=== PATIENT | female | born 1945 | race Caucasian/White ===

== ENCOUNTER 2019-04-19 11:51 | Outpatient (CLI) | payer MEDICARE, BC, SELFPAY ==
--- NOTE | ~2019-04-19 | XR_ITS ---
XR ribs LT 2V w CXR 2V DATE: 04/19/2019 12:30 INDICATION: Injury 2 days ago. Left posterior lower rib pain. TECHNIQUE: PA and lateral chest. 3 views of the left ribs. COMPARISON: 08/18/2018 AP chest FINDINGS: Normal heart size. No hilar or mediastinal enlargement. No pulmonary infiltrate or consolidation, pleural effusion or pulmonary vascular congestion or pneumo thorax. No left rib fracture is evident. IMPRESSION: Negative Reviewed, dictated and finalized at location B. IMPRESSION: Negative
== END 2019-04-19 11:52 | disposition home or self-care (01) ==
PROVIDERS: PCP Family Medicine; Visit Provider Family Medicine
DX: R07.81 Pleurodynia (principal)
CPT/HCPCS: 71045; 71101

== ENCOUNTER → 2021-10-08 07:18 | Outpatient (CLI) | payer MEDICARE, BC, SELFPAY ==
--- NOTE | ~2021-10-08 | MM_ITS ---
EXAMINATION: MM screening [facility] BI w bernardino HISTORY: Screening mammogram TECHNIQUE: Craniocaudal and mediolateral oblique 3-D tomosynthesis images were obtained and synthetic 2-D images were generated. CAD analysis was submitted and interpreted. COMPARISON: 04/15/2018, 09/12/2011 BREAST PARENCHYMAL COMPOSITION: There are scattered areas of fibroglandular density. FINDINGS: There is no suspicious mass, calcification, or architectural distortion to suggest malignan cy in either breast. There has been no suspicious interval change. IMPRESSION: 1. No mammographic evidence of malignancy. 2. Recommend routine screening mammography in one year. BI-RADS Category 1: Negative Reviewed, dictated and finalized at location A.
--- NOTE | ~2021-10-08 | DEXA_ITS ---
Bone Density Report Name: KIRK BRINK Age: 76 Sex: Female Ethnicity: White Date of : 1945 Indication: postmenopausal; screening for osteoporosis; height loss; Referring Provider: Rafael Schumacher Study: Bone densitometry was performed. Exam Date: October 08, 2021 Accession number: [id number] Bone Density: Region BMD T-score Z-score Classification AP Spine (L1-L4) 0.893 -1.4 1.2 Osteopenia Femoral Neck (Left) 0.690 -1.4 0.8 Osteopenia Total Hip (Left) 0.742 -1.6 0.3 Osteopenia Femoral Neck (Right) 0.703 -1.3 0.9 Osteopenia Total Hip (Right) 0.763 -1.5 0.5 Osteopenia Total Hip Mean 0.753 -1.6 0.4 Osteopenia World Health Organization criteria for BMD impression classify patients as: Normal (T-score at or above -1.0), Osteopenia (T-score between -1.0 and -2.5), or Osteoporosis (T-score at or below -2.5). 10-year Fracture Risk(1): Major Osteoporotic Fracture 12% Hip Fracture 2.6% Reported Risk Factors: [place] (), Neck BMD=0.690, BMI=28.4 (1) FRAX(R) Version 3.08. Fracture probability calculated for an untreated patient. Fracture probability may be lower if the patient has received treatment. Clinical Information Provided by Patient: Has used the following medications: Vitamin D, Calcium, MTV Patient maximum height was 64 Menopause Age: 58 No regular weight bearing exercise Drinks caffeinated beverages Onset of menses at age 9 Number of children 2 Impression: The patient has low bone mass, based on the Left Total Hip T-score. The patient has an estimated ten-year risk of hip fracture of 2.6% and an estimated ten-year risk of major fracture of 12%, based on the WHO FRAX algorithm. Discussion: BONE DENSITY IS LOW AT ONE OR MORE SKELETAL SITES. This patient's lowest T-score is low at one or more skeletal sites. It meets the World Health Organization's (WHO) criteria for ?low bone mass? (T-score between -1.0 and -2.5). The patient's 10-year risk of fracture as calculated by FRAX is less than the threshold where pharmacological therapy is recommended by the National Osteoporosis Foundation (NOF). However, all treatment decisions require clinical judgment and consideration of individual patient factors, including patient preferences, comorbidities, previous drug use, risk factors not captured in the FRAX model (e.g., frailty, falls, vitamin D deficiency, increased bone turnover, interval significant decline in bone density) and possible under or overestimation of fracture risk by FRAX. The patient should follow a healthful lifestyle (good nutrition with adequate calcium and vitamin D, and appropriate weight-bearing exercise). Follow-Up: Consider repeating this study in 2 to 3 years to reassess this patient's status, or sooner if there is some new clinical indication. Repor
== END ==
PROVIDERS: PCP Family Medicine; Visit Provider Family Medicine
DX: Z12.31 Encounter for screening mammogram for malignant neoplasm of breast (principal); Z78.0 Asymptomatic menopausal state; M85.89 Other specified disorders of bone density and structure, multiple sites
CPT/HCPCS: 77063; 77067; 77080

== ENCOUNTER 2022-02-04 14:23 | Emergency (ER) | payer MEDICARE, SELFPAY ==
--- NOTE | ~2022-02-04 | XR_ITS ---
EXAM: XR knee RT min 4V, XR knee LT min 4V DATE: 02/04/2022 15:09 (accession [id number]), 02/04/2022 15:08 (accession [id number]) HISTORY: bilateral knee pain x 2 days rt one worse. . COMPARISON: None available. FINDINGS: Decreased mineralization. No fracture or dislocation. No lytic or blastic lesion. Moderate tricompartmental bilateral knee arthritis, with chondrocalcinosis. No erosion or periosteal change. Soft tissues within normal limits. IMPRESSION: No acute osseous finding in the right or left knee. Reviewed, dictated and finalized at location K. TECHNICIAN IMPRESSION: No acute osseous finding in the right or left knee.
[2022-02-04 14:46] VITALS: BP 155/69; PULSE 87; RESP 16; TEMP 36.9; O2SAT 99
--- NOTE | 2022-02-04 16:10 | ED.EXTPRO ---
HPI - Extremity Problem General Chief complaint: Extremity Problem,Nontraumatic Stated complaint: Both Knee Pain Time Seen by Provider: 02/04/22 16:12 Source: patient, RN notes reviewed and old records reviewed Mode of arrival: ambulatory Limitations: no limitations History of Present Illness HPI Narrative: 76-year-old female presents to the [facility] with bilateral knee pain, worse on the right than the left. Two days ago was walking upstairs when it felt like her knee was about to give out. Called her primary and was advised to come to the [facility] to get x-rays of her knees. Has an appointment tomorrow. Has been taking Tylenol. Swelling noted to the generalized right knee without tenderness to the area. No bruising noted. Related Data Home Medications Medication Instructions Recorded Confirmed aspirin 81 mg tablet,delayed 81 mg PO DAILY 04/19/19 02/04/22 release (Aspir-Low) cholecalciferol (vitamin D3) 50 50 mcg PO DAILY 04/19/19 02/04/22 mcg (2,000 unit) capsule (D3-2000) garlic 5,000 mcg tablet 5 mg PO DAILY 04/19/19 02/04/22 mbujwoteaxdb-gryzfokq-rwsvxv tablet 1 tablet PO DAILY 04/19/19 02/04/22 pyridoxine (vitamin B6) 100 mg 100 mg PO DAILY 04/19/19 02/04/22 tablet red yeast rice 600 mg capsule 600 mg PO DAILY 04/19/19 02/04/22 omega-3 fatty acids-fish oil 360 1 cap PO DAILY 02/15/20 02/04/22 mg-1,200 mg capsule (Fish Oil) calcium carbonate 600 mg calcium 1,200 mg PO 3XW 05/09/20 02/04/22 (1,500 mg) tablet Allergies Allergy/AdvReac Type Severity Reaction Status Date / Time No Known Allergies Allergy Verified 02/04/22 15:37 Review of Systems Review of Systems: All systems reviewed & are unremarkable except as noted in HPI and below Constitutional: Constitutional: Reports no additional constitutional complaints Eyes: Eyes: Reports no additional eye complaints ENT: Reports system reviewed and no additional complaints, except as documented Cardiovascular: Cardiovascular: Reports no additional cardiovascular complaints, Denies chest pain and Denies dyspnea Respiratory: Respiratory: Reports no additional respiratory complaints, Denies chest congestion, Denies cough and Denies dyspnea Gastrointestinal: Gastrointestinal: Reports no additional gastrointestinal complaints, Denies abdominal pain, Denies nausea and Denies vomiting Musculoskeletal: Musculoskeletal: Reports as per HPI, Reports arthralgias (Bilateral knee) and Reports joint swelling (Right knee) Integumentary/Breasts: Skin/Breast: Reports system reviewed and no additional complaints, except as docu Neurologic: Reports system reviewed and no additional complaints, except as documented Psychiatric: Psychiatric: Reports no additional psychiatric complaints Allergic/Immunologic: Allergic/Immunologic: Reports no additional allergic/immunologic complaints PMFSH Past Medical History Medical History Bladder prolapse 09/29/2018- Pessary Dyslipidemia 04/01/2018 Essential (primary) hypertension History of stroke OAB (overactive bladder) 03/17/2018 Post-menopausal Stroke 08/18/2018 Vaginal pessary present 09/29/2018 Surgical History Surgical History Hx of colonoscopy (~05/2018) 05/2018 [place] teeth extracted (~1964) Social History Social History Second hand tobacco smoke exposure: No Alcohol intake: never Substance use: never Substance use type: does not use Gender identity (if verbalized by the patient): Female Comments At the time of my signature, I reviewed and agree with the nursing past medical, surgical, social, and family history. There is no relevant family history pertinent to the patient complaint. Exam Const: General: cooperative, healthy appearing, comfortable, no acute distress, well developed, alert and well nourished Nutrit
== END 2022-02-04 16:20 | disposition home or self-care (01) ==
PROVIDERS: Emergency Provider Nurse Practitioner; PCP Family Medicine
DX: M17.0 Bilateral primary osteoarthritis of knee (principal); I10 Essential (primary) hypertension; E78.5 Hyperlipidemia, unspecified; Z79.82 Long term (current) use of aspirin; Z86.73 Personal history of transient ischemic attack (TIA), and cerebral infarction without residual deficits
CPT/HCPCS: 73564; 99214; G0463

== ENCOUNTER 2022-03-23 10:27 | Emergency (ER) | payer MEDICARE, SELFPAY ==
[2022-03-23 10:41] VITALS: BP 113/67; PULSE 108; RESP 16; TEMP 37.3; O2SAT 99
--- NOTE | 2022-03-23 10:57 | ED.NAVMDI ---
HPI - Nausea/Vomiting/Diarrhea General Chief complaint: Nausea/Vomiting/Diarrhea Stated complaint: diarrhea Source: patient and RN notes reviewed History of Present Illness HPI Narrative: 76-year-old male with history of hypertension and TIA, presents to Urgent Care with son at side. Patient states she has had a cough all week and this morning had 2 episodes of diarrhea. Patient states she had a 20 minute episode of clamminess and weakness this morning, stating she could not walk at the time due to weakness. Patient believes diarrhea is from some chicken soup which she ate that was bad. Patient denies any vomiting, chest pain, shortness of breath, syncope, or dizziness. Denies any dysuria. Patient drinking water without issue and examined. Some parts of this dictation were generated by voice recognition software and may contain typographical and/or grammatical inaccuracies. Related Data Home Medications Medication Instructions Recorded Confirmed aspirin 81 mg tablet,delayed 81 mg PO DAILY 04/19/19 02/04/22 release (Aspir-Low) cholecalciferol (vitamin D3) 50 50 mcg PO DAILY 04/19/19 03/23/22 mcg (2,000 unit) capsule (D3-2000) garlic 5,000 mcg tablet 5 mg PO DAILY 04/19/19 03/23/22 yfshiapiaoyo-ramjruuf-tvuafk tablet 1 tablet PO DAILY 04/19/19 03/23/22 pyridoxine (vitamin B6) 100 mg 100 mg PO DAILY 04/19/19 03/23/22 tablet red yeast rice 600 mg capsule 600 mg PO DAILY 04/19/19 03/23/22 omega-3 fatty acids-fish oil 360 1 cap PO DAILY 02/15/20 03/23/22 mg-1,200 mg capsule (Fish Oil) calcium carbonate 600 mg calcium 1,200 mg PO 3XW 05/09/20 03/23/22 (1,500 mg) tablet Allergies Allergy/AdvReac Type Severity Reaction Status Date / Time No Known Allergies Allergy Verified 03/23/22 12:01 Review of Systems Review of Systems: CONSTITUTIONAL: Reports sweats. EYES: Denies visual changes, redness, or discharge. ENT: Denies otalgia and sore throat CARDIOVASCULAR: Denies chest pain, palpitations, or edema. RESPIRATORY: reports cough. GASTROINTESTINAL: reports diarrhea. GENITOURINARY: Denies dysuria or hematuria. SKIN: Denies rash or itching. MUSCULOSKELETAL: Denies back pain, joint pain, or myalgia. NEUROLOGIC: Reports weakness. [facility] Past Medical History Medical History Bladder prolapse 09/29/2018- Pessary Dyslipidemia 04/01/2018 Essential (primary) hypertension History of stroke OAB (overactive bladder) 03/17/2018 Osteoarthritis of knees, bilateral Post-menopausal Stroke 08/18/2018 Vaginal pessary present 09/29/2018 Surgical History Surgical History Hx of colonoscopy (~05/2018) 05/2018 [place] teeth extracted (~1964) Social History Social History Smoking status: Never smoker Second hand tobacco smoke exposure: No Alcohol intake: never Substance use: never Substance use type: does not use Lack of Transportation: No Lack of Food: Never True Current Housing: I Have Housing Concerned About Future Housing: No Difficulty Paying Gas/Electric Bills: No Difficulty Paying for Meds: No Currently Unemployed: No Education: High School Diploma/GED Difficulty w/ Childcare or Family Care: No Living arrangements: alone Additional living arrangements comments: recently 2021. Occupation/Education: retired Gender identity (if verbalized by the patient): Female Sexual Orientation (if Verbalized by the Patient): Straight or Heterosexual Agree to blood products: Yes Comments At the time of my signature, I reviewed and agree with the nursing past medical, surgical, social, and family history. There is no relevant family history pertinent to the patient complaint. Exam Narrative: GENERAL: This is a well-nourished, well-developed patient, in no apparent distress.
--- NOTE | 2022-03-23 10:59 | ECG_ITS ---
Measurements Intervals [place] Rate: 102 P: 61 GA: 155 QRS: -63 QRSD: 80 T: 66 QT: 343 QTc: 449 Interpretive Statements SINUS TACHYCARDIA POSSIBLE LEFT ATRIAL ENLARGEMENT [-0.1mV P WAVE IN V1/V2] LEFT ANTERIOR FASCICULAR BLOCK [QRS AXIS <= -45, QR IN I, RS IN II] POOR R-WAVE PROGRESSION COMPARED TO ECG 08/18/2018 05:04:16 SINUS TACHYCARDIA NOW PRESENT LEFT ANTERIOR FASCICULAR BLOCK NOW PRESENT Electronically Signed On 03-23-2022 19:43:28 INK BLENDER by Martha Varghese M.D.
--- NOTE | 2022-03-23 11:09 | PC.NURSE ---
son at bedside and had requested [facility] for further evaluation.
== END 2022-03-23 11:20 | disposition short-term general hospital (02) ==
PROVIDERS: Emergency Provider Nurse Practitioner Family; PCP Family Medicine
DX: U07.1 COVID-19 (principal); I44.4 Left anterior fascicular block; E78.5 Hyperlipidemia, unspecified; I10 Essential (primary) hypertension; M17.0 Bilateral primary osteoarthritis of knee; Z86.73 Personal history of transient ischemic attack (TIA), and cerebral infarction without residual deficits; Z79.82 Long term (current) use of aspirin
CPT/HCPCS: 87426; 93005; 99213; C9803; G0463

== ENCOUNTER 2022-03-23 11:39 | Emergency (ER) | payer MEDICARE, SELFPAY ==
--- NOTE | ~2022-03-23 | XR_ITS ---
XR chest 1V portable DATE: 03/23/2022 13:40 INDICATION: Cough. Covid-positive. TECHNIQUE: Portable upright AP chest on March 23, 2022 at 1339 hours COMPARISON: 04/29/2019 PA and lateral chest FINDINGS: Normal heart size. No hilar or mediastinal enlargement. The lungs are hyperinflated but magnolia ar of infiltrate or consolidation. No pleural effusion or pulmonary vascular congestion or pneumothor ax. Osteopenia. Scoliosis and degenerative change of the thoracic and lumbar spine. IMPRESSION: Bilateral hyperinflation; no active cardiopulmonary disease Reviewed, dictated and finalized at location A. GER RELOCATION
[2022-03-23 11:57] VITALS: BP 114/69; PULSE 104; RESP 20; TEMP 36.6; O2SAT 99
[2022-03-23 13:32] VITALS: O2SAT 94
[2022-03-23 13:36] VITALS: PULSE 96
--- NOTE | 2022-03-23 13:52 | ED.GENADULT ---
HPI - General Adult General Chief complaint: Unspecified Stated complaint: COVID + from [facility] Time Seen by Provider: 03/23/22 13:37 Source: patient Mode of arrival: ambulatory Limitations: no limitations History of Present Illness HPI narrative: This is a 76-year-old female that presents to the emergency department for cold symptoms ongoing over the last couple of days. Associated with chills, diarrhea, and feeling generally unwell. She went to the urgent care and tested positive for COVID. They sent her here for further evaluation. Patient reports she feels fine currently. Has no complaints. She is not COVID vaccinated. Denies chest pain or shortness of breath. Related Data Home Medications Medication Instructions Recorded Confirmed aspirin 81 mg tablet,delayed 81 mg PO DAILY 04/19/19 02/04/22 release (Aspir-Low) cholecalciferol (vitamin D3) 50 50 mcg PO DAILY 04/19/19 03/23/22 mcg (2,000 unit) capsule (D3-2000) garlic 5,000 mcg tablet 5 mg PO DAILY 04/19/19 03/23/22 yktsqvqvgutg-rqgzavkq-nyxbse tablet 1 tablet PO DAILY 04/19/19 03/23/22 pyridoxine (vitamin B6) 100 mg 100 mg PO DAILY 04/19/19 03/23/22 tablet red yeast rice 600 mg capsule 600 mg PO DAILY 04/19/19 03/23/22 omega-3 fatty acids-fish oil 360 1 cap PO DAILY 02/15/20 03/23/22 mg-1,200 mg capsule (Fish Oil) calcium carbonate 600 mg calcium 1,200 mg PO 3XW 05/09/20 03/23/22 (1,500 mg) tablet Allergies Allergy/AdvReac Type Severity Reaction Status Date / Time No Known Allergies Allergy Verified 03/23/22 12:01 Review of Systems Review of Systems: CONSTITUTIONAL: Reports chills. Denies fever ENT: Denies congestion, sore throat CARDIOVASCULAR: Denies chest pain RESPIRATORY: Reports cough. Denies dyspnea. GASTROINTESTINAL: Reports diarrhea. All systems reviewed & are unremarkable except as noted in HPI and below PMFSH Past Medical History Medical History Bladder prolapse 09/29/2018- Pessary Dyslipidemia 04/01/2018 Essential (primary) hypertension History of stroke OAB (overactive bladder) 03/17/2018 Osteoarthritis of knees, bilateral Post-menopausal Stroke 08/18/2018 Vaginal pessary present 09/29/2018 Surgical History Surgical History Hx of colonoscopy (~05/2018) 05/2018 [place] teeth extracted (~1965) Social History Social History Smoking status: Never smoker Second hand tobacco smoke exposure: No Alcohol intake: never Substance use: never Substance use type: does not use Lack of Transportation: No Lack of Food: Never True Current Housing: I Have Housing Concerned About Future Housing: No Difficulty Paying Gas/Electric Bills: No Difficulty Paying for Meds: No Currently Unemployed: No Education: High School Diploma/GED Difficulty w/ Childcare or Family Care: No Living arrangements: alone Additional living arrangements comments: recently 2021. Occupation/Education: retired Gender identity (if verbalized by the patient): Female Sexual Orientation (if Verbalized by the Patient): Straight or Heterosexual Agree to blood products: Yes Exam Narrative: GENERAL: Elderly, well-nourished, and in no acute distress. HEAD: Normocephalic, atraumatic. EYES: EOMI. ENT: Nares clear, no rhinorrhea or epistaxis. Mucous membranes moist. Oropharynx without tonsillar hypertrophy exudate or other lesions. NECK: Supple. No adenopathy or masses. CHEST: Clear to auscultation. No respiratory distress. No wheezes rales or rhonchi HEART: Regular rate and rhythm. No murmur heard. Normal peripheral pulses. ABDOMEN: Soft, nontender, nondistended, normal active bowel sounds. EXTREMITIES: Normal range of motion. No edema. SKIN: Warm, dry, no rash. NEURO: No focal deficits. Alert and oriented x3. PSYCH: Normal mood and affect
[2022-03-23 15:11] LABS: Basophils Percent Auto 0.5 % (0.2-1.2); Hematocrit 39.7 % (37.0-47.0); Hemoglobin 13.2 g/dL (12.0-15.0); Immature Granulocyte Absolute 0.01 K/mm3 (0.00-0.031); Immature Granulocyte Percent A 0.2 % (0-0.5); Lymphocytes Absolute Auto 0.76 K/mm3 (0.9-3.2); Mean Corpuscular HGB Conc 33.2 g/dl (32-36); Mean Corpuscular Hemoglobin 30.1 pg (26-34); Mean Corpuscular Volume 90.6 fl (80-100); Mean Platelet Volume 10.8 fl (7.4-10.4); Monocytes Absolute Auto 0.8 K/mm3 (0.1-0.6); Monocytes Percent Auto 18.7 % (2.6-8.5); Neutrophils Absolute Auto 2.5 K/mm3 (1.3-6.7); Neutrophils Percent Auto 61.6 % (45.5-73.1); Platelet Count Result 161 k/mm3 (150-375); Red Blood Count 4.38 M/mm3 (4.2-5.4); Red Cell Distribution Width 12.7 % (11.5-14.5)
[2022-03-23 15:20] LABS: Alanine Aminotransferase 19 U/L (6-35); Albumin Level 4.1 g/dL (3.5-5.1); Alkaline Phosphatase 51 U/L (38-126); Anion Gap 6 mmol/L (8-16); Aspartate Amino Transferase 28 U/L (14-36); Bilirubin,Total 0.6 mg/dL (0.2-1.3); Blood Urea Nitrogen 19 mg/dL (7-17); Calcium 8.5 mg/dL (8.4-10.2); Carbon Dioxide 28 mmol/L (22-30); Chloride 101 mmol/L (98-107); Estimated CRCL calculation 49 ml/min; Estimated Glomerular Filt Rate > 60; Glucose 86 mg/dL (65-110); Sodium 135 mmol/L (137-145)
[2022-03-23 16:25] VITALS: BP 106/60; PULSE 100; RESP 20; O2SAT 99
== END 2022-03-23 16:27 | disposition home or self-care (01) ==
PROVIDERS: Emergency Provider Physician Assistant; PCP Family Medicine
DX: U07.1 COVID-19 (principal); E78.5 Hyperlipidemia, unspecified; I10 Essential (primary) hypertension; N32.81 Overactive bladder; M17.0 Bilateral primary osteoarthritis of knee; Z86.73 Personal history of transient ischemic attack (TIA), and cerebral infarction without residual deficits; Z28.310 Unvaccinated for COVID-19; Z79.82 Long term (current) use of aspirin
CPT/HCPCS: 36415; 71045; 80053; 85025; 87426; 93005; 99283; C9803

== ENCOUNTER 2022-04-22 13:32 | Emergency (ER) | payer MEDICARE, SELFPAY ==
[2022-04-22 13:37] VITALS: BP 153/77; PULSE 87; RESP 16; TEMP 36.3; O2SAT 99
[2022-04-22 13:50] VITALS: BP 152/74
--- NOTE | 2022-04-22 13:56 | ED.GENADULT ---
HPI - General Adult General Chief complaint: Unspecified Stated complaint: High B/P Time Seen by Provider: 04/22/22 13:45 Source: patient Mode of arrival: ambulatory Limitations: no limitations History of Present Illness HPI narrative: Ms. Ruiz is a 76-year-old female patient presenting to the clinic today with complaints of high blood pressure. She reports that her blood pressures been 165 systolic and she is concerned about this. She contacted her PCP however they no longer accept her insurance and she is not able to get an appointment. She denies any headache, visual changes, chest pain, shortness of breath, slurred speech, unsteady gait, lethargy, weakness, or dizziness. She is rather anxious in the clinic today. Related Data Home Medications Medication Instructions Recorded Confirmed aspirin 81 mg tablet,delayed 81 mg PO DAILY 04/19/19 02/04/22 release (Aspir-Low) cholecalciferol (vitamin D3) 50 50 mcg PO DAILY 04/19/19 03/23/22 mcg (2,000 unit) capsule (D3-1999) mztxrlobqklt-uyiqqgdp-thqmij tablet 1 tablet PO DAILY 04/19/19 04/22/22 pyridoxine (vitamin B6) 100 mg 100 mg PO DAILY 04/19/19 04/22/22 tablet red yeast rice 600 mg capsule 600 mg PO DAILY 04/19/19 04/22/22 omega-3 fatty acids-fish oil 360 1 cap PO DAILY 02/15/20 04/22/22 mg-1,200 mg capsule (Fish Oil) calcium carbonate 600 mg calcium 1,200 mg PO 3XW 05/09/20 03/23/22 (1,500 mg) tablet Allergies Allergy/AdvReac Type Severity Reaction Status Date / Time No Known Allergies Allergy Verified 04/22/22 13:59 Review of Systems Review of Systems: Pertinent positives per HPI. Patient denies any fever, chills, rash, headache, visual changes, dizziness, cough, runny nose, sore throat, shortness of breath, chest pain, palpitations, nausea, vomiting, diarrhea, constipation, abdominal pain, or any urinary issues. [facility] Past Medical History Medical History Bladder prolapse 09/29/2018- Pessary Dyslipidemia 04/01/2018 Essential (primary) hypertension History of stroke OAB (overactive bladder) 03/17/2018 Osteoarthritis of knees, bilateral Post-menopausal Stroke 08/18/2018 Vaginal pessary present 09/29/2018 Surgical History Surgical History Hx of colonoscopy (~05/2018) 05/2018 [place] teeth extracted (~1965) Social History Social History Smoking status: Never smoker Second hand tobacco smoke exposure: No Alcohol intake: never Substance use: never Substance use type: does not use Lack of Transportation: No Lack of Food: Never True Current Housing: I Have Housing Concerned About Future Housing: No Difficulty Paying Gas/Electric Bills: No Difficulty Paying for Meds: No Currently Unemployed: No Education: High School Diploma/GED Difficulty w/ Childcare or Family Care: No Living arrangements: alone Additional living arrangements comments: recently 2021. Occupation/Education: retired Gender identity (if verbalized by the patient): Female Sexual Orientation (if Verbalized by the Patient): Straight or Heterosexual Agree to blood products: Yes Comments At the time of my signature, I reviewed and agree with the nursing past medical, surgical, social, and family history. There is no relevant family history pertinent to the patient complaint. Exam Narrative: General: Well-developed, well nourished, in no apparent distress Head: Normocephalic, atraumatic. Cardio: Regular rate and rhythm, s1 and s2 normal, no murmur appreciated. Resp: Clear to auscultation bilaterally, no rhonchi, rales, wheezing or rubs. Extremities: No deformity, no edema, no cyanosis, capillary refill less than 2 seconds, peripheral pulses palpable and strong. Integumentary: [place], warm, and dry, intact without lesion, no danika
== END 2022-04-22 14:05 | disposition home or self-care (01) ==
PROVIDERS: Emergency Provider Nurse Practitioner Family; PCP Family Medicine
DX: I10 Essential (primary) hypertension (principal); E78.5 Hyperlipidemia, unspecified; Z86.73 Personal history of transient ischemic attack (TIA), and cerebral infarction without residual deficits; M17.0 Bilateral primary osteoarthritis of knee; Z79.82 Long term (current) use of aspirin
CPT/HCPCS: 99211; G0463

== ENCOUNTER 2022-04-24 08:49 | Emergency (ER) | payer MEDICARE, SELFPAY ==
--- NOTE | ~2022-04-24 | XR_ITS ---
EXAMINATION: XR chest 2V DATE: 04/24/2022 10:45 INDICATION: Generalized malaise, weakness and hypertension. Recent COVID. TECHNIQUE: PA and lateral views of the chest were obtained. COMPARISON: Chest radiograph dated 03/23/2022 FINDINGS: The lungs remain clear with no focal airspace opacities, pulmonary edema, pleural effusion or pneumot horax. The cardiomediastinal silhouette is normal. Moderate thoracic spondylosis. Partially visualize d mild lumbar levorotoscoliosis. IMPRESSION: 1. No acute cardiopulmonary disease. Reviewed, dictated and finalized at location B.
[2022-04-24 09:05] VITALS: BP 144/76; PULSE 90; RESP 18; TEMP 36.7; O2SAT 99
--- NOTE | 2022-04-24 09:13 | ECG_ITS ---
Measurements Intervals [place] Rate: 76 P: 31 CO: 165 QRS: -2 QRSD: 82 T: 42 QT: 382 QTc: 431 Interpretive Statements SINUS RHYTHM POSSIBLE LEFT ATRIAL ENLARGEMENT INFERIOR INFARCT, AGE INDETERMINATE ABNORMAL ECG COMPARED TO ECG 03/23/2022 11:10:31 SINUS RHYTHM NOW PRESENT Electronically Signed On 04-24-2022 10:40:23 CDT by Holden Campbell D.O.
--- NOTE | 2022-04-24 09:56 | ED.HA ---
HPI - Headache General Chief Complaint: Headache Stated Complaint: High Blood Pressure, Not feeling Well Time Seen by Provider: 04/24/22 09:50 History of Present Illness HPI Narrative: 76-year-old female previously healthy here for evaluation of just not feeling well today. Patient states that she woke woke up this morning just not feeling herself and was feeling fatigued. States she feels like she did when she had COVID back at the end of March. She was evaluated at an urgent care yesterday over concerns of elevated blood pressure but upon chart review her blood pressure was in the 150 systolic. Patient denies any headache, chest pain, shortness of breath, fevers or chills, nausea or vomiting, dysuria, urgency or frequency, abdominal pain, cough. Related Data Home Medications Medication Instructions Recorded Confirmed aspirin 81 mg tablet,delayed 81 mg PO DAILY 04/19/19 04/22/22 release (Aspir-Low) cholecalciferol (vitamin D3) 50 50 mcg PO DAILY 04/19/19 04/22/22 mcg (2,000 unit) capsule (D3-1999) mvprbalqsnlf-wnkwwfix-lsxtme tablet 1 tablet PO DAILY 04/19/19 04/22/22 pyridoxine (vitamin B6) 100 mg 100 mg PO DAILY 04/19/19 04/22/22 tablet red yeast rice 600 mg capsule 600 mg PO DAILY 04/19/19 04/22/22 omega-3 fatty acids-fish oil 360 1 cap PO DAILY 02/15/20 04/22/22 mg-1,200 mg capsule (Fish Oil) calcium carbonate 600 mg calcium 1,200 mg PO 3XW 05/09/20 04/22/22 (1,500 mg) tablet Allergies Allergy/AdvReac Type Severity Reaction Status Date / Time No Known Allergies Allergy Verified 04/24/22 08:51 Review of Systems Review of Systems: All systems reviewed & are unremarkable except as noted in HPI and below PMFSH Past Medical History Medical History Bladder prolapse 09/29/2018- Pessary Dyslipidemia 04/01/2018 Essential (primary) hypertension History of stroke OAB (overactive bladder) 03/17/2018 Osteoarthritis of knees, bilateral Post-menopausal Stroke 08/18/2018 Vaginal pessary present 09/29/2018 Surgical History Surgical History Hx of colonoscopy (~05/2018) 05/2018 [place] teeth extracted (~1965) Social History Social History Smoking status: Never smoker Second hand tobacco smoke exposure: No Alcohol intake: never Substance use: never Substance use type: does not use Lack of Transportation: No Lack of Food: Never True Current Housing: I Have Housing Concerned About Future Housing: No Difficulty Paying Gas/Electric Bills: No Difficulty Paying for Meds: No Currently Unemployed: No Education: High School Diploma/GED Difficulty w/ Childcare or Family Care: No Living arrangements: alone Additional living arrangements comments: recently 2021. Occupation/Education: retired Gender identity (if verbalized by the patient): Female Sexual Orientation (if Verbalized by the Patient): Straight or Heterosexual Agree to blood products: Yes Exam Narrative: APPEARANCE: Well appearing, no pain in distress, well-nourished. Head: Normocephalic and atraumatic. EYES: PERRLA/EOMI, conjunctivae clear NOSE: No nasal drainage EARS: External ear normal in appearance THROAT: Oropharynx is clear. Mucous membranes are moist. NECK: Supple. No adenopathy, no masses. RESPIRATORY: Airway patent, respirations nonlabored. Clear to auscultation bilaterally, no rales, rhonchi, wheezing. CARDIOVASCULAR: Regular rate and rhythm without murmurs, rubs, or gallops. ABDOMINAL: Normoactive bowel sounds. Soft, nontender, nondistended. No rebound tenderness or guarding. MUSCULOSKELETAL: Extremities are warm and well-perfused. Moves all extremities well. No edema. NEURO: Cranial nerves II through XII intact. Normal gait. No ataxia. Normal speech. No focal neurologic deficits.
[2022-04-24 09:59] VITALS: BP 151/81; PULSE 78; RESP 15; O2SAT 100
[2022-04-24 10:47] LABS: Basophils Absolute Auto 0.1 K/mm3 (0.0-0.1); Basophils Percent Auto 0.7 % (0.2-1.2); Eosinophils Absolute Auto 0.1 K/mm3 (0-0.3); Eosinophils Percent Auto 2.1 % (0-4.4); Hematocrit 39.7 % (37.0-47.0); Hemoglobin 13.1 g/dL (12.0-15.0); Immature Granulocyte Absolute 0.02 K/mm3 (0.00-0.031); Immature Granulocyte Percent A 0.3 % (0-0.5); Lymphocytes Absolute Auto 1.44 K/mm3 (0.9-3.2); Lymphocytes Percent Auto 21.1 % (18.3-44.2); Mean Corpuscular Hemoglobin 30.5 pg (26-34); Mean Corpuscular Volume 92.5 fl (80-100); Mean Platelet Volume 10.9 fl (7.4-10.4); Monocytes Absolute Auto 0.5 K/mm3 (0.1-0.6); Monocytes Percent Auto 7.3 % (2.6-8.5); Neutrophils Absolute Auto 4.7 K/mm3 (1.3-6.7); Neutrophils Percent Auto 68.5 % (45.5-73.1); Platelet Count Result 202 k/mm3 (150-375); Red Blood Count 4.29 M/mm3 (4.2-5.4); Red Cell Distribution Width 12.9 % (11.5-14.5); White Blood Count 6.8 K/mm3 (4.5-10.0)
[2022-04-24 10:55] LABS: Alanine Aminotransferase 20 U/L (6-35); Albumin Level 4.3 g/dL (3.5-5.1); Alkaline Phosphatase 67 U/L (38-126); Anion Gap 5 mmol/L (8-16); Aspartate Amino Transferase 26 U/L (14-36); Bilirubin,Total 0.9 mg/dL (0.2-1.3); Blood Urea Nitrogen 13 mg/dL (7-17); Calcium 9.4 mg/dL (8.4-10.2); Carbon Dioxide 30 mmol/L (22-30); Chloride 105 mmol/L (98-107); Estimated Glomerular Filt Rate > 60; Glucose 99 mg/dL (65-110); Potassium 3.8 mmol/L (3.4-5.0); Sodium 140 mmol/L (137-145)
[2022-04-24 11:06] VITALS: BP 148/83; PULSE 81; RESP 16; O2SAT 100
[2022-04-24 11:13] LABS: Appearance Urine Cloudy (Clear); Bacteria Urine 1+ /hpf; Bilirubin Urine Negative (Negative); Blood Urine Trace (Negative); Color Urine Yellow (Yellow); Glucose Urine UA Negative (Negative); Ketones Urine Negative (Negative); Leukocyte Esterase Ur 3+ LEU/UL (Negative); Need Manual Microscopic Reviewed; Nitrate Urine Negative (Negative); Non Pathogenic Casts 0-2; Protein Urine Negative (Negative); RBC Urine 0-2 /hpf (0-2); Specific Grav Ur 1.007 (1.001-1.035); Squamous Epithelial Cell Urine Many /hpf (Few); Urobilinogen Urine 0.2 mg/dL (<2.0); WBC Urine 21-50 /hpf
[2022-04-24 11:17] LABS: Add Urine Microscopic? YES
[2022-04-24 11:29] VITALS: BP 148/83; PULSE 93; RESP 18; O2SAT 100
== END 2022-04-24 11:30 | disposition home or self-care (01) ==
PROVIDERS: Emergency Medicine; Emergency Provider Physician Assistant; PCP Internal Medicine
DX: N39.0 Urinary tract infection, site not specified (principal); E78.5 Hyperlipidemia, unspecified; I10 Essential (primary) hypertension; Z86.73 Personal history of transient ischemic attack (TIA), and cerebral infarction without residual deficits
CPT/HCPCS: 36415; 71046; 80053; 81001; 85025; 87086; 87088; 93005; 99283

== ENCOUNTER 2022-06-03 10:48 | Inpatient (IN) | payer MEDICARE, SELFPAY ==
[2022-06-03] VITALS (18 sets, daily range): BP systolic 93–122; BP diastolic 49–77; PULSE 84–173; RESP 13–24; TEMP 36.4–36.6; O2SAT 95–100
--- NOTE | ~2022-06-03 | CT_ITS ---
EXAMINATION: CTA chest PE protocol DATE: 06/03/2022 13:24 INDICATION: Right chest pain TECHNIQUE: Computed tomography angiography (CTA) of the chest was performed with 100 mL Omnipaque-350 intravenous contrast timed to evaluate the pulmonary arteries. Coronal maximum intensity projection 3D-reconstructions were created by the technologist. The dose-length product (DLP) was 240.35 mGy-cm. Automated exposure control and iterative reconstruction technique were employed. COMPARISON: None. FINDINGS: The pulmonary arteries are well-opacified. No pulmonary embolism is identified. There is mi ld dependent atelectasis. The lungs are free of focal airspace opacities. No pleural effusion or pneu mothorax. 4 mm nodules of the right lower lobe are likely infectious or inflammatory. Cardiomegaly is noted. There are no pathologically enlarged thoracic lymph nodes. There is a small sliding hiatal he rnia. There is a 2.2 cm cyst of right kidney. There is moderate thoracic spondylosis. IMPRESSION: 1. No pulmonary embolus identified. Reviewed, dictated and finalized at location B.
--- NOTE | ~2022-06-03 | XR_ITS ---
EXAMINATION: XR chest 1V portable INDICATION: Transient alteration of awareness TECHNIQUE: Portable AP chest at 1151 hours COMPARISON: 04/24/2022 FINDINGS: The lungs are free of acute opacities. No pleural effusion or pneumothorax. The cardiomedia stinal silhouette is normal. IMPRESSION: 1. No acute cardiopulmonary abnormality. Reviewed, dictated and finalized at location B.
--- NOTE | ~2022-06-03 | US_ITS ---
EXAMINATION: US art doppler w press LE BI DATE: 06/04/2022 14:27 INDICATION: TECHNIQUE: Segmental pressures and plethysmographic and Doppler waveforms of the brachial and lower e xtremity arteries were obtained. COMPARISON: None. FINDINGS: Left brachial artery pressure of 102 mm Hg. Right brachial artery pressures was not performed due to a planned cardiac catheterization utilizing the right lower extremity.. The right ankle-brachial index (CHEVY) is 1.14 (normal >= 0.9-1). The right great toe-brachial index (T BI) is 0.64 (normal >= 0.6-0.8). The right lower extremity segmental pressure gradients are normal (n ormal gradients <= 20-30 mmHg between adjacent levels on the same leg or the same levels on the two l egs). Arterial waveforms are triphasic at the right common femoral artery and biphasic in the more di stal arteries with brisk systolic upstrokes throughout. The left CHEVY is 1.16. The left TBI is 0.15. The left lower extremity segmental pressure gradients are normal. Arterial waveforms are triphasic at the left common femoral, the left posterior tibial and d orsalis pedis arteries and biphasic in the left superficial femoral and popliteal arteries with brisk systolic upstrokes throughout. IMPRESSION: 1. 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 2. No significant arterial occlusive disease to the right lower limb with normal right CHEVY and TBI. Reviewed, dictated and finalized at location A. IMPRESSION: 1. 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 2. No significant arterial occlusive disease to the right lower limb with kellie l right CHEVY and TBI.
--- NOTE | 2022-06-03 11:25 | ECG_ITS ---
Measurements Intervals [place] Rate: 101 P: 43 HI: 171 QRS: -12 QRSD: 76 T: 193 QT: 401 QTc: 521 Interpretive Statements SINUS TACHYCARDIA POSSIBLE LEFT ATRIAL ENLARGEMENT [-0.1mV P WAVE IN V1/V2] POSSIBLE INFERIOR MYOCARDIAL INFARCTION , OF INDETERMINATE AGE [30 ms Q WAVE IN II/aVF] MODERATE T-WAVE ABNORMALITY, CONSIDER INFERIOR AND LATERAL ISCHEMIA [-0.1+ mV T WAVE IN I/aVL/V5/V6] ABNORMAL ECG COMPARED TO PREVIOUS ECG, SIGNIFICANT T-WAVE INVERSIONS CONSISTENT WITH ISCHEMIA ARE NOW PRESENT Electronically Signed On 06-03-2022 11:58:13 CDT by Abebe Mccollum M.D.
--- NOTE | 2022-06-03 11:27 | ECG_ITS ---
Measurements Intervals [place] Rate: 130 P: -14 TX: 138 QRS: -6 QRSD: 74 T: 128 QT: 326 QTc: 480 Interpretive Statements SINUS TACHYCARDIA LOW QRS VOLTAGE IN EXTREMITY LEADS [QRS DEFLECTION < 0.5 mV IN LIMB LEADS] ST ELEVATION, CONSIDER INFERIOR INJURY [MARKED ST ELEVATION W/O NORMALLY INFLECTED T WAVE IN II/aVF] ACUTE DC ABNORMAL ECG Electronically Signed On 06-03-2022 11:59:19 CDT by Abebe Mccollum M.D.
--- NOTE | 2022-06-03 11:28 | ED.SYNCOPE ---
HPI - Syncope General Chief Complaint: Syncope <Patty Hunt PA-C - Last Filed: 06/03/22 17:34> Stated Complaint: Syncopal <Patty Hunt PA-C - Last Filed: 06/03/22 17:34> Time Seen by Provider: 06/03/22 10:53 <Patty Hunt PA-C - Last Filed: 06/03/22 17:34> History of Present Illness HPI narrative: 76-year-old female with a history of hypertension, dyslipidemia, CVA in 2019 reports via EMS for evaluation of a syncopal episode that occurred prior to arrival. Patient reports she was at the auto shop when she stood up from sitting, took a couple steps felt lightheaded and began to fall to the ground. States the auto contract sheltered workshop supervisor caught her and lowered to the ground. She reports she did not hit her head or injure herself. She reports remembering feeling lightheaded and not auto contract sheltered workshop supervisor catching her, then waking up on the floor. Of note, had an episode yesterday while at [employer] where she began choking on her mucus and had to have the panel edge sealer perform the Heimlich maneuver 3 times. Since then, she has had right lower lateral rib pain to which she attributes is from the Heimlich maneuver. She denies chest pain, dizziness, focal numbness or weakness, vision changes, fever, body aches, chills, palpitations, anxiety, diaphoresis. She is followed by Dr. Mccollum (cardiology) since her CVA in 2019. <Patty Hunt PA-C - Last Filed: 06/03/22 17:34> Related Data Home Medications: Home Medications Medication Instructions Recorded Confirmed aspirin 81 mg tablet,delayed 81 mg PO DAILY 04/19/19 06/03/22 release (Aspir-Low) cholecalciferol (vitamin D3) 50 50 mcg PO DAILY 04/19/19 06/03/22 mcg (2,000 unit) capsule (D3-2000) pyridoxine (vitamin B6) 100 mg 100 mg PO DAILY 04/19/19 06/03/22 tablet red yeast rice 600 mg capsule 600 mg PO 2XW 04/19/19 06/03/22 omega-3 fatty acids-fish oil 360 1 cap PO 3XW 02/15/20 06/03/22 mg-1,200 mg capsule (Fish Oil) calcium carbonate 500 mg calcium 500 mg PO 3XW 06/03/22 06/03/22 (1,250 mg) tablet losartan 25 mg tablet 37.5 mg PO DAILY 06/03/22 06/03/22 tjgaufuw-ole-gggjk ac 400 1 tablet PO DAILY 06/03/22 06/03/22 mcg-calcium carb 500 mg-vit K1 20 mcg tablet <Patty Hunt PA-C - Last Filed: 06/03/22 17:34> Allergies/Adverse Reactions: Allergies Allergy/AdvReac Type Severity Reaction Status Date / Time No Known Allergies Allergy Verified 06/03/22 11:14 <Patty Hunt PA-C - Last Filed: 06/03/22 17:34> Review of Systems Review of Systems: CONSTITUTIONAL: Denies fever, chills EYES: Denies visual changes, redness, or discharge. ENT: Denies rhinorrhea, congestion, sore throat, or otalgia. CARDIOVASCULAR: See HPI RESPIRATORY: Denies cough or dyspnea. GASTROINTESTINAL: Denies abdominal pain, nausea, vomiting, or diarrhea. GENITOURINARY: Denies dysuria or hematuria. SKIN: Denies rash or itching. MUSCULOSKELETAL: Denies back pain, joint pain, or myalgia. NEUROLOGIC: Denies headache, numbness, dizziness, or weakness. PSYCHIATRIC: Denies anxiety or depression. <Patty Hunt PA-C - Last Filed: 06/03/22 17:34> [facility] Past Medical History Medical History: Medical History (Updated 06/03/22 @ 17:11 by Trice Forte NP) Anxiety Bladder prolapse 09/29/2018- Pessary Dyslipidemia 04/01/2018 Essential (primary) hypertension Glaucoma History of stroke OAB (overactive bladder) 03/17/2018 Osteoarthritis of knees, bilateral Osteoporosis Post-menopausal Stroke 08/18/2018 Vaginal pessary present 09/29/2018 <Patty Hunt PA-C - Last Filed: 06/03/22 17:34> Surgical History Surgical History: Surgical History H/O tubal ligation Hx of colonoscopy (~05/2018) 05/2018 [place] teeth extracted (~1965) <Patty Hunt PA-C - Last Filed: 06/03/22 17:34> Family History Family History: Family History (Updated 06/03/22 @ 17:36 by Jessi
[2022-06-03 11:37] LABS: Basophils Absolute Auto 0.1 K/mm3 (0.0-0.1); Basophils Percent Auto 0.4 % (0.2-1.2); Eosinophils Absolute Auto 0.1 K/mm3 (0-0.3); Eosinophils Percent Auto 0.7 % (0-4.4); Hematocrit 39.7 % (37.0-47.0); Hemoglobin 13.5 g/dL (12.0-15.0); Immature Granulocyte Absolute 0.05 K/mm3 (0.00-0.031); Immature Granulocyte Percent A 0.4 % (0-0.5); Lymphocytes Percent Auto 13.6 % (18.3-44.2); Mean Corpuscular Hemoglobin 30.2 pg (26-34); Mean Corpuscular Volume 88.8 fl (80-100); Mean Platelet Volume 10.9 fl (7.4-10.4); Monocytes Percent Auto 6.9 % (2.6-8.5); Neutrophils Absolute Auto 10.9 K/mm3 (1.3-6.7); Platelet Count Result 227 k/mm3 (150-375); Red Blood Count 4.47 M/mm3 (4.2-5.4); Red Cell Distribution Width 12.8 % (11.5-14.5)
[2022-06-03] MEDS: SODIUM CHLORIDE 0.9% IV 1,000 ML 999 ML IV CONT (11:37)
[2022-06-03] MEDS: METOPROLOL TARTRATE INJ 5 MG/5 ML VIAL IV PUSH (11:37)
[2022-06-03 11:45] LABS: Alanine Aminotransferase 25 U/L (6-35); Albumin Level 4.5 g/dL (3.5-5.1); Alkaline Phosphatase 63 U/L (38-126); Anion Gap 4 mmol/L (8-16); Aspartate Amino Transferase 43 U/L (14-36); Bilirubin,Total 1.5 mg/dL (0.2-1.3); Blood Urea Nitrogen 13 mg/dL (7-17); Calcium 9.3 mg/dL (8.4-10.2); Carbon Dioxide 31 mmol/L (22-30); Chloride 101 mmol/L (98-107); Estimated CRCL calculation 52 ml/min; Estimated Glomerular Filt Rate > 60; Glucose 104 mg/dL (65-110); Potassium 4.2 mmol/L (3.4-5.0); Sodium 136 mmol/L (137-145)
[2022-06-03 11:50] LABS: INR 1.2; Partial Thromboplastin Time 31.1 SECONDS (22.3-36.8); Prothrombin Time 14.3 Seconds (11.1-14.7)
[2022-06-03 11:53] LABS: Magnesium 2.2 mg/dL (1.6-2.3)
[2022-06-03 11:59] LABS: D Dimer 0.46 ug/mL (<0.48)
[2022-06-03 12:29] LABS: NT Pro B Type Natriuretic Pept 7710 pg/mL (19.9-100)
[2022-06-03] MEDS: ASPIRIN 81 MG CHEWABLE TABLET 324 MG PO (12:32)
[2022-06-03 12:42] LABS: Thyroid Stimulating Hormone Reflex 0.822 uIU/mL (0.465-4.68)
[2022-06-03] MEDS: HEPARIN SOD/D5W 100 UNITS/ML 25,000 UNITS/250 ML BAG 7 UNITS IV CONT (12:47)
[2022-06-03] MEDS: HEPARIN SODIUM 5,000 UNITS/ML VIAL 3500 UNITS IV PUSH (12:48)
--- NOTE | 2022-06-03 13:06 | PM.CNCAR ---
Assessment and Plan Assessment and plan (1) Syncope: Code(s): R55 - Syncope and collapse Status: Acute Plan This is a 76-year-old lady who presents to the hospital with significant shortness of breath occurring yesterday in denominational and this morning after walking a short distance in a local auto repair shop/dealership she had a transient syncopal episode. She does have significant T-wave abnormalities on her ECG and elevated troponin but no chest pain of any kind. Her electrocardiogram shows sinus tachycardia and transiently she was in atypical flutter with two-to-one conduction a short time ago. This was self-limited. In this setting I believe my leading suspicion is pulmonary embolism. I recognize that her diet D-dimer is normal but she is not reporting acute chest pain and does not have acute ST segment elevation on her ECG. Chest CTA is going to be performed at this time. If those findings are negative I will consider left heart catheterization. Also in the differential diagnosis I suppose is takotsubo stress cardiomyopathy given the recent of her . Angel Bernardo MD [facility] History of Present Illness History of Present Illness Consult date/time: 06/03/22 13:06 Reason For Visit: Syncopal Narrative: This is a 76-year-old woman I am seeing in the emergency room because of ECG abnormalities and elevation of her troponin level. She reports no prior history of cardiac problems and came to the emergency room today because there was a syncopal episode in a local car dealership where she was picking up her car from a service appointment. The patient states that she began to feel unwell actually yesterday when she was attending denominational. In her denominational service she became short of breath. She was not eating anything but she felt very short of breath and like she might be choking. The french polisher perform the hilum like maneuver on her and she says she thinks maybe some mucus came up and after a while of resting she felt better. She still felt very weak the rest of the day and went home to rest. She felt a little bit better this morning and took a card for a service appointment. She says when she stood up from the desk to walk to a door to leaving get her car she walked about 8-10 feet and then became very lightheaded and appears to have lost consciousness transiently. A family member was with her and lowered her to the grounds that she did not fall and sustaining sort of injury. She was brought here to the hospital for further evaluation. Her electrocardiogram shows sinus tachycardia with inferior lateral T-wave inversions which were not seen on previous ECG. Her baseline electrocardiogram does show some inferior Q-waves. She while being evaluated in the emergency room had troponin level sampled which was elevated at 1.8. Once again she is not having any sort of chest pain pressure or heaviness. Transiently in the emergency room she was much more tachycardic with a heart rate about 180. A repeat 12 lead EKG at that time showed atypical atrial flutter with 2-1 conduction. In this setting I am seeing her in consultation. She does not report any recent illness bed rest long travel or immobility. She is an active woman who does not notice any sort of chest discomfort with physical exertion. She has lost about 15-20 lb in the last 6 months. In the fall she lost her and is now . She has had a poor appetite since then. Review of Systems Constitutional: Constitutional: Reports lethargy Eyes: Eyes: Reports no additional eye complaints ENT: Reports system reviewed and no additional complaints, except as documented Cardiovascular: Cardiovascular: Reports as per HPI Respiratory: Respiratory: Reports as per HPI and Reports dyspnea Gastrointestinal: Gastrointestinal: Reports no additional gastrointestinal complaints Musculoskeletal: Comments: Some rib pain following Heimlich maneuver being delivered to her
[2022-06-03 13:12] LABS: Appearance Urine Slightly Cloudy (Clear); Bilirubin Urine Negative (Negative); Blood Urine Trace-lysed (Negative); Color Urine Yellow (Yellow); Glucose Urine UA Negative (Negative); Ketones Urine Negative (Negative); Leukocyte Esterase Ur 3+ LEU/UL (Negative); Nitrate Urine Negative (Negative); Protein Urine Negative (Negative); Urobilinogen Urine 0.2 mg/dL (<2.0)
[2022-06-03 13:35] LABS: Bacteria Urine 2+ /hpf; Non Pathogenic Casts 0-2; Squamous Epithelial Cell Urine Many /hpf (Few); WBC Urine 51-100 /hpf
[2022-06-03 13:42] LABS: Need Manual Microscopic Reviewed
[2022-06-03 13:43] LABS: Add Urine Microscopic? YES
--- NOTE | 2022-06-03 13:44 | PM.IMHP ---
H&P: HPI History of Present Illness Date/Time: 06/03/22 13:44 Chief Complaint: Syncopal episode Narrative: This is a 76-year-old female patient who has no prior history of any coronary artery disease. She has a history of hypertension, dyslipidemia and CVA with no residual. The patient was at the auto repair shop when she had the syncopal episode. She was told that her auto repairs had been completed and she was free to take her car. The patient then stood up and took a couple steps and felt lightheaded. She started to fall to the ground. The auto shop welder caught her and lowered her to the ground. The patient stated that she did not hit her head. She has no injury. However the patient stated that she is having some pain to her right chest as she was choking yesterday and she was given the Heimlich maneuver. The patient stated she has been coughing since she had COVID approximately 2 months ago. The patient was at [employer] yesterday when she felt that she had a mucus plug and her operating systems programmer performed the Heimlich maneuver on her 3 times. Patient currently has no chest pain or dizziness. She has no fever chills. No palpitations. She has been seeing [facility]. [facility] since her CVA in 2019. Her white count is 14.0. Her sodium is 136. Total bilirubin 1.5 and AST 43. Troponin 1.820 and 1.600. Her BNP is 7710. The patient's urine was also positive for UTI per through many squamous epithelial cells which could be had contaminant. Chest x-ray was read as no acute cardiopulmonary abnormality. Chest CTA was read as no pulmonary embolus identified. Cardiology has seen the patient. The patient was started on heparin drip. The patient is currently pain-free except for the tenderness to her right rib. The patient is being admitted to inpatient status on the date of service of 06/03/2022. Review of Systems Review of Systems: All systems reviewed & are unremarkable except as noted in HPI and below Constitutional: Constitutional: Reports as per HPI and Reports no additional constitutional complaints Eyes: Eyes: Reports as per HPI and Reports no additional eye complaints ENT: Reports system reviewed and no additional complaints, except as documented and Reports Normal hearing present Cardiovascular: Cardiovascular: Reports no additional cardiovascular complaints Respiratory: Respiratory: Reports no additional respiratory complaints and Reports no additional respiratory complaints Gastrointestinal: Gastrointestinal: Reports as per HPI and Reports no additional gastrointestinal complaints Musculoskeletal: Musculoskeletal: Reports no additional musculoskeletal complaints Integumentary/Breasts: Skin/Breast: Reports system reviewed and no additional complaints, except as docu and Reports as per HPI Neurologic: Reports system reviewed and no additional complaints, except as documented, Reports as per HPI and Reports Normal hearing present Psychiatric: Psychiatric: Reports no additional psychiatric complaints and Reports as per HPI Endocrine: Endocrine: Reports no additional endocrine complaints Hematologic/Lymphatic: Hematologic/Lymphatic: Reports no additional hematologic/lymphatic complaints Allergic/Immunologic: Allergic/Immunologic: Reports no additional allergic/immunologic complaints [facility] Past Medical History Medical History (Updated 06/03/22 @ 17:11 by Trice Forte NP) Anxiety Bladder prolapse 09/29/2018- Pessary Dyslipidemia 04/01/2018 Essential (primary) hypertension Glaucoma History of stroke OAB (overactive bladder) 03/17/2018 Osteoarthritis of knees, bilateral Osteoporosis Post-menopausal Stroke 08/18/2018 Vaginal pessary present 09/29/2018 Surgical History Surgical History H/O tubal ligation Hx of colonoscopy (~05/2018) 05/2018 [place] teeth extracted (~1965) Family History Family History (Updated 06/03/22 @ 17:03 by Trice Webster
--- NOTE | 2022-06-03 15:20 | PC.NURSE ---
Per senior technical writer at this time. Pt can have PO water. Pt given water at this time.
[2022-06-03] MEDS: ACETAMINOPHEN 500 MG TABLET 1000 MG PO ×2 (17:09→23:13)
--- NOTE | 2022-06-03 17:23 | ADMGEN ---
This patient, Emma Ruiz, was admitted to IMU Room 200-01 on 06/03/22 at 1620. Patient/family oriented to hospital policies and general routines including ID bracelet, bed and alarms, visiting hours, pain management, procedures, bathroom and other care routines, personal items, smoking policy, room service/diet, and visiting hours. Information on how to activate the Rapid Response Team has been discussed. Patient/Family are encouraged to report perceived risks to care and to ask questions if they do not understand what they are told or what they should do.
[2022-06-03 19:41] LABS: INR 1.2; Prothrombin Time 14.6 Seconds (11.1-14.7)
[2022-06-03] MEDS: HEPARIN SODIUM 5,000 UNITS/ML VIAL 4000 UNITS IV PUSH (20:22)
--- NOTE | 2022-06-03 22:30 | PC.NURSE ---
This patient, Emma Ruiz, was admitted to IMU Room 200-01. Patient/family oriented to hospital policies and general routines including ID bracelet, bed and alarms, visiting hours, pain management, procedures, bathroom and other care routines, personal items, smoking policy, room service/diet, and visiting hours. Information on how to activate the Rapid Response Team has been discussed. Patient/Family are encouraged to report perceived risks to care and to ask questions if they do not understand what they are told or what they should do.
[2022-06-04] VITALS (23 sets, daily range): BP systolic 89–133; BP diastolic 47–93; PULSE 81–115; RESP 12–20; TEMP 36.4–37.2; O2SAT 92–100
--- NOTE | 2022-06-04 | ECHO_ITS ---
Patient Info Name: Emma Ruiz Age: 76 years : 1945 Gender: Female Ht: 62 in Wt: 152 lbs BSA: 1.76 m2 HR: 85 bpm BP: 117 / 68 mmHg Heart Rhythm: Sinus Rhythm, Tachycardia Technical Quality: Fair Exam Date: 06/04/2022 7:46 AM Exam Location: [facility] Pulmonary Patient Status: Inpatient Admit Date: 06/03/2022 Staff Ordering Physician: Trice Forte NP [employer] Instructor: Ely Harris RDCS Attending Provider: Vance Barraza MD Referring Physician: Reanna DANGELO; Exam Type: CA echo doppler color flow Study Info Indications - elevated troponin Complete two-dimensional, color flow and Doppler transthoracic echocardiogram is performed. Summary 1. Complete two-dimensional, color flow and Doppler transthoracic echocardiogram is performed. 2. Left ventricular chamber dimension is normal. 3. Left ventricular systolic function is severely reduced, estimated at 20-25%. 4. There is mildly increased left ventricular wall thickness. 5. There is hypokinesis of the mid LV segments with akinesis of the apex. Regional wall motion abnormalities consistent with Takotsubo cardiomyopathy. 6. Right ventricular systolic function is normal. 7. There is mild aortic valve regurgitation. 8. There is mild to moderate tricuspid valve regurgitation. 9. There is mild pulmonic regurgitation. Left Ventricle There is hypokinesis of the mid LV segments with akinesis of the apex. Regional wall motion abnormalities consistent with Takotsubo cardiomyopathy. Left ventricular chamber dimension is normal. Left ventricular systolic function is severely reduced, estimated at 20-25%. There is mildly increased left ventricular wall thickness. Right Ventricle Right ventricular chamber dimension is normal. Right ventricular systolic function is normal. Left Atria Left atrial chamber dimension is normal. Right Atria Right atrial chamber dimension is normal. Atrial Septum Intact interatrial septum visualized by color flow imaging. Aortic Valve The aortic valve is trileaflet. There is mild aortic valve sclerosis. There is no aortic valve stenosis. There is mild aortic valve regurgitation. Pulmonic Valve The pulmonic valve is not well visualized. There is mild pulmonic regurgitation. Mitral Valve The mitral valve has normal leaflets. There is no mitral valve stenosis. There is trace mitral valve regurgitation. The mitral valve annulus is mildly calcified. Tricuspid Valve There is no significant tricuspid valve stenosis. There is mild to moderate tricuspid valve regurgitation. Pericardium/Pleural The pericardium appears epicardial fat pad. There is no pericardial effusion. Inferior Vena Cava Normal inferior vena cava with >50% collapse upon inspiration consistent with normal right atrial pressure, 3 mmHg. Aorta The aortic root size at the sinus of Valsalva is normal. Left Ventricular Outflow Tract Name Value Normal LVOT 2D LVOT Diameter 2.0 cm LVOT Doppler LVOT Peak Gradient 3 mmHg LVOT Mean Gradient 2 mmHg LVOT VTI
[2022-06-04 03:08] LABS: Basophils Absolute Auto 0.1 K/mm3 (0.0-0.1); Basophils Percent Auto 0.8 % (0.2-1.2); Eosinophils Absolute Auto 0.2 K/mm3 (0-0.3); Hematocrit 35.5 % (37.0-47.0); Hemoglobin 11.6 g/dL (12.0-15.0); Immature Granulocyte Absolute 0.02 K/mm3 (0.00-0.031); Immature Granulocyte Percent A 0.2 % (0-0.5); Lymphocytes Absolute Auto 2.23 K/mm3 (0.9-3.2); Lymphocytes Percent Auto 24.4 % (18.3-44.2); Mean Corpuscular HGB Conc 32.7 g/dl (32-36); Mean Corpuscular Hemoglobin 30.4 pg (26-34); Mean Corpuscular Volume 93.2 fl (80-100); Mean Platelet Volume 10.9 fl (7.4-10.4); Monocytes Absolute Auto 0.7 K/mm3 (0.1-0.6); Monocytes Percent Auto 7.4 % (2.6-8.5); Neutrophils Percent Auto 65.2 % (45.5-73.1); Platelet Count Result 166 k/mm3 (150-375); Red Blood Count 3.81 M/mm3 (4.2-5.4); White Blood Count 9.1 K/mm3 (4.5-10.0)
[2022-06-04 03:18] LABS: Alanine Aminotransferase 20 U/L (6-35); Albumin Level 3.6 g/dL (3.5-5.1); Alkaline Phosphatase 56 U/L (38-126); Anion Gap 3 mmol/L (8-16); Aspartate Amino Transferase 35 U/L (14-36); Bilirubin,Total 0.9 mg/dL (0.2-1.3); Blood Urea Nitrogen 11 mg/dL (7-17); Calcium 8.7 mg/dL (8.4-10.2); Carbon Dioxide 28 mmol/L (22-30); Chloride 106 mmol/L (98-107); Estimated CRCL calculation 60 ml/min; Estimated Glomerular Filt Rate > 60; Glucose 100 mg/dL (65-110); Lactic Acid Reflex 0.7 mmol/L (0.7-2.0); Magnesium 2.1 mg/dL (1.6-2.3); Potassium 3.8 mmol/L (3.4-5.0); Sodium 137 mmol/L (137-145)
[2022-06-04 04:01] LABS: Partial Thromboplastin Time 161.2 SECONDS (22.3-36.8)
--- NOTE | 2022-06-04 09:19 | WPDMODSED ---
Moderate Sedation Note-Pt Data Patient Data Diagnosis: NSTEMI Present Complaint: NSTEMI Procedure to be performed/Plan: Coronary angiography, LH, +/- PCI Allergies Allergy/AdvReac Type Severity Reaction Status Date / Time No Known Allergies Allergy Verified 06/03/22 11:14 Home Medications Medication Instructions Recorded Confirmed Type aspirin 81 mg tablet,delayed 81 mg PO DAILY 04/19/19 06/03/22 History release (Aspir-Low) cholecalciferol (vitamin D3) 50 50 mcg PO DAILY 04/19/19 06/03/22 History mcg (2,000 unit) capsule (D3-1999) pyridoxine (vitamin B6) 100 mg 100 mg PO DAILY 04/19/19 06/03/22 History tablet red yeast rice 600 mg capsule 600 mg PO 2XW 04/19/19 06/03/22 History omega-3 fatty acids-fish oil 360 1 cap PO 3XW 02/15/20 06/03/22 History mg-1,200 mg capsule (Fish Oil) calcium carbonate 500 mg calcium 500 mg PO 3XW 06/03/22 06/03/22 History (1,250 mg) tablet losartan 25 mg tablet 37.5 mg PO DAILY 06/03/22 06/03/22 History rmvfqccs-ukm-xmhgg ac 400 1 tablet PO DAILY 06/03/22 06/03/22 History mcg-calcium carb 500 mg-vit K1 20 mcg tablet Current Medications: Active Medications Acetaminophen (Acetaminophen 500 Mg Tablet) 1,000 mg PO Q6H PRN PRN Reason: Mild Pain (1-3) or Fever Last Admin: 06/03/22 23:13 Dose: 1,000 mg Aspirin (Aspirin 81 Mg Enteric Tablet) 81 mg PO QAM [facility] Atorvastatin Calcium (Atorvastatin 40 Mg Tablet) 40 mg PO DAILY [facility] Calcium Carbonate (Calcium Carbonate (Oscal) 500 Mg Tablet) 500 mg PO MoWeFr@0900 [facility] Fish Oil ([place] 3 Polyunsat Fatty Acids 1 Gm Cap) 1 gm PO MoWeFr@0900 [facility] Fluticasone Propionate (Fluticasone Propionate 0.05% Na Spr 16 Gm Btl (*Bkc)) 1 spray NASAL Q12HR [facility] Last Admin: 06/03/22 20:33 Dose: Not Given Ceftriaxone Sodium (Rocephin 1 Gm/Ns 50 Ml) 1 gm in 50 mls @ 100 mls/hr IVPB Q24H [facility] Last Infusion: 06/03/22 20:55 Dose: Infused Sodium Chloride (Normal Saline Iv) 1,000 mls @ 125 mls/hr IV CONT .Q8H ONE Stop: 06/04/22 17:16 Losartan Potassium (Losartan Potassium 12.5 Mg Tablet) 12.5 mg PO DAILY ANNETTE Losartan Potassium (Losartan Potassium 25 Mg Tablet) 25 mg PO DAILY [facility] Metoprolol Succinate (Metoprolol Succinate Ext Rel 25 Mg Tabcr) 25 mg PO QAM [facility] Multivitamins/Calcium (Therapeutic Multivitamins/Minerals Tab (*Bkc)) 1 tablet PO DAILY [facility] Perflutren Lipid Microsphere (Perflutren Lipid Microspheres 1.5 Ml Vial Diluted To 10 Ml Total Volume) 0 ml IV PUSH ONCE PRN; Protocol PRN Reason: adequate visualization Stop: 06/05/22 17:06 Pyridoxine HCl (Pyridoxine Hcl 50 Mg Tablet) 100 mg PO DAILY [facility] Vitamin D (Cholecalciferol 1,000 Units Tablet) 2,000 units PO DAILY [facility] Sedation/Anesthesia: No previous sedation/anesthesia problems (including family history). [facility] Past Medical History Medical History Anxiety Bladder prolapse 09/29/2018- Pessary Dyslipidemia 04/01/2018 Essential (primary) hypertension Glaucoma History of stroke OAB (overactive bladder) 03/17/2018 Osteoarthritis of knees, bilateral Osteoporosis Post-menopausal Stroke 08/18/2018 Vaginal pessary present 09/29/2018 Surgical History Surgical History H/O tubal ligation Hx of colonoscopy (~05/2018) 05/2018 [place] teeth extracted (~1965) Family History Family History Unknown No problems noted. Mother Cancer of ovary Sibling Diabetes mellitus Social History Social History Social History: She is and has 2 sons. 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 Lifelong nonsmoker. She does not use any alcohol or illicit drugs. Code status full code Smoking status: Never smoker Second hand tobacco smoke exposure: No Alcohol intake: never Substance use: never Substance use type: does not use Lack of Tr
--- NOTE | 2022-06-04 09:20 | WPDCARDPROC ---
Cardiac Cath Procedure Note Date of procedure:: 06/04/22 Performing physician:: CATHETERIZATION LABORATORY REPORT Procedure Date: 06/04/2022 Emergency Vehicle Operations Instructor: Adam Newton M.D., [facility]? Referring Physician: Dr. Tova M.D. ? Anesthesia: Versed and Fentanyl were ordered and given in my presence at 08:54, procedure ended at 09:09. Supervision of nurse monitored moderate sedation with Versed and Fentanyl was provided for 15 minutes. Total of Versed 1mg and Fentanyl 25mcg were administered by the International Flight Attendant RN Cheryl Portillo. Pre-op Diagnosis: NSTEMI Post-op Diagnosis: 1. Non-obstructive coronary arteries 2. Elevated left ventricular end-diastolic pressure of 29mmHg 3. Takotsubo cardiomyopathy with moderately-severely reduced left ventricular ejection fraction Procedure(s): 1. Moderate sedation 2. Ultrasound-guided access of the right radial artery 3. Coronary angiography 4. Left heart cath 5. Left ventricular angiogram Access Site: Right radial artery Brief History and Clinical Indications: Patient is a 76-year-old female who is referred for [facility] for NSTEMI. All risks, benefits and alternatives to left heart catheterization with or without percutaneous coronary intervention was discussed at length with the patient. Risk of complications including but not limited to bleeding, infection, arrhythmia, stroke, worsening kidney function, blood loss, groin hematoma, limb loss, emergency coronary artery bypass grafting, and even were discussed with the patient and all questions were answered. The patient understood and wished to proceed. Time out called, patient name, date of , medical record number, allergies, procedure performed, identify Emergency Vehicle Operations Instructor, patient and staff member concurred with accurate data, procedure carried on. Findings: LEFT HEART CATHETERIZATION FINDINGS: 1. Left main: The left main coronary artery is widely patent without any significant obstructive disease. 2. Left anterior descending: The LAD and the diagonal branches have mild luminal irregularities without any significant obstructive angiographic disease. 3. Left circumflex: The left circumflex artery and the main marginal branches have mild luminal irregularities without any significant obstructive angiographic disease. The left circumflex artery is co-dominant vessel. 4. Right coronary artery: The RCA has luminal irregularities without any significant obstructive angiographic disease. The RCA is co-dominant vessel. 5. Left ventricle: A. End-diastolic pressure 29mmHg. B. LV gram deferred. C. No significant gradient across aortic valve on catheter pullback. Description of Procedure: Informed consent signed and placed in the chart. Patient transferred to labor operator room. Prepped and draped in usual sterile fashion. 2% lidocaine injected subcutaneously in right wrist area. 22-gauge venipuncture catheter used to access the right radial artery with the Seldinger technique. 6-FR slender sheath placed in right radial artery. Nitroglycerine and Verapamil were given intraarterial through the sheath. Versacore wire advanced under fluoroscopy 5F Tig 4 diagnostic catheter engaged Left Main Coronary Artery. 5F Tig 4 diagnostic catheter engaged Right Coronary Artery Multiple orthogonal angiogram obtained and reviewed 5F Pigtail diagnostic catheter crossed aortic valve to obtain LVEDP, LV angiogram obtained. Hemostasis was achieved by application of TR band. ? Assessment: 1. Non-obstructive coronary arteries 2. Elevated left ventricular end-diastolic pressure of 29mmHg 3. Takotsubo cardiomyopathy with moderately-severely reduced left ventricular ejection fraction Post Operative Condition: Stable No significant blood loss Disposition: Floor Plan: The patient will be monitored in the recovery area. Transfer back to the floor after post-cath bed rest is completed. Continue aggressive medical therapy and risk factor modification. See consu
--- NOTE | 2022-06-04 10:14 | PM.PNCARD ---
Progress Note: A&P Assessment and Plan (1) Takotsubo cardiomyopathy: Code(s): I51.81 - Takotsubo syndrome Status: Acute Assessment and Plan: Cardiac cath 06/04 showed: 1. Non-obstructive coronary arteries 2. Elevated left ventricular end-diastolic pressure of 29mmHg 3. Takotsubo cardiomyopathy with moderately-severely reduced left ventricular ejection fraction TTE 06/04 showed LVEF 20-25%, regional wall motion abnormality consistent with Takotsubo. Will initiate GDMT: Metoprolol succinate 25mg QD Stop Losartan. Start Entresto. Start Spironolactone. Start Jardiance. Referral to cardiac rehab placed. (2) Non-ST elevation [place] (NSTEMI): Code(s): I21.4 - Non-ST elevation (NSTEMI) myocardial infarction Status: Acute Assessment and Plan: Cardiac cath 06/04 showed: 1. Non-obstructive coronary arteries 2. Elevated left ventricular end-diastolic pressure of 29mmHg 3. Takotsubo cardiomyopathy with moderately-severely reduced left ventricular ejection fraction Management of Takotsubo as noted above. Continue ASA and statin. (3) Essential (primary) hypertension: Code(s): I10 - Essential (primary) hypertension Status: Acute Assessment and Plan: Stable, initiating GDMT for cardiomyopathy as noted above. (4) Dyslipidemia: Code(s): E78.5 - Hyperlipidemia, unspecified Status: Chronic Assessment and Plan: Continue statin. Plan Anticipate discharge 06/05. Recommendations/plan discussed with Hospitalist. Will arrange for outpatient follow-up in our clinic. Subjective Date/time seen: 06/04/22 10:14 Interval history: Reason for visit: NSTEMI HPI: This is a 76-year-old woman I am seeing in the emergency room because of ECG abnormalities and elevation of her troponin level.? She reports no prior history of cardiac problems and came to the emergency room today because there was a syncopal episode in a local car dealership where she was picking up her car from a service appointment.? The patient states that she began to feel unwell actually yesterday when she was attending confucianism.? In her confucianism service she became short of breath.? She was not eating anything but she felt very short of breath and like she might be choking.? The physician assistant perform the hilum like maneuver on her and she says she thinks maybe some mucus came up and after a while of resting she felt better.? She still felt very weak the rest of the day and went home to rest.? She felt a little bit better this morning and took a card for a service appointment.? She says when she stood up from the desk to walk to a door to leaving get her car she walked about 8-10 feet and then became very lightheaded and appears to have lost consciousness transiently.? A family member was with her and lowered her to the grounds that she did not fall and sustaining sort of injury.? She was brought here to the hospital for further evaluation.? Her electrocardiogram shows sinus tachycardia with inferior lateral T-wave inversions which were not seen on previous ECG.? Her baseline electrocardiogram does show some inferior Q-waves.? She while being evaluated in the emergency room had troponin level sampled which was elevated at 1.8.? Once again she is not having any sort of chest pain pressure or heaviness.? Transiently in the emergency room she was much more tachycardic with a heart rate about 180.? A repeat 12 lead EKG at that time showed possible atypical atrial flutter with 2-1 conduction.? In this setting I am seeing her in consultation.? She does not report any recent illness bed rest long travel or immobility.? She is an active woman who does not notice any sort of chest discomfort with physical exertion.? She has lost about 15-20 lb in the last 6 months.? In the fall she lost her and is now .? She has had a poor appetite since then. Date of service 06/04/2022: No acute events overnight. NPO for cardiac cath today. Patient i
[2022-06-04] MEDS: METOPROLOL SUCCINATE EXT REL 25 MG TABCR PO (11:52)
[2022-06-04] MEDS: EMPAGLIFLOZIN 10 MG TABLET PO (11:53)
[2022-06-04] MEDS: SPIRONOLACTONE 12.5 MG TABLET PO (11:53)
[2022-06-04] MEDS: SACUBITRIL/VALSARTAN 24-26 MG TABLET 1 TAB PO ×2 (11:53→20:41)
[2022-06-04] MEDS: CHOLECALCIFEROL 1,000 UNITS TABLET 2000 UNITS PO (11:53)
[2022-06-04] MEDS: PYRIDOXINE HCL 50 MG TABLET 100 MG PO (11:54)
[2022-06-04] MEDS: ASPIRIN 81 MG ENTERIC TABLET PO (11:54)
[2022-06-04] MEDS: THERAPEUTIC MULTIVITAMINS/MINERALS TAB (*BKC) 1 TABLET PO (11:54)
[2022-06-04] MEDS: FLUTICASONE PROPIONATE 0.05% NA SPR 16 GM BTL (*BKC) 1 SPRAY NASAL ×2 (11:55→20:41)
--- NOTE | 2022-06-04 12:12 | PC.NURSE ---
06/04- Patient refusing 40mg lipitor , Dr Guadarrama at bedside educating patient on risk and benefits of taking medications as prescribed
[2022-06-04] MEDS: SODIUM CHLORIDE 0.9% IV 1,000 ML 125 ML IV CONT (15:58)
--- NOTE | 2022-06-04 17:05 | PM.IMPN ---
Progress Note: A&P Assessment and Plan (1) Non-ST elevation [place] (NSTEMI): Code(s): I21.4 - Non-ST elevation (NSTEMI) myocardial infarction Status: Acute Assessment and Plan: Patient is pain-free at this time. She is on heparin drip. Cardiology has been consulted. Echo has been ordered. Troponin was 1.820 and then 1.600. Continue to trend troponins. They appear to be coming down. The patient is now on Lipitor and aspirin. She was given a 1 time dose of metoprolol in the emergency room and then started on a daily dose. 06/04/2022 interval history: 76-year-old female presented with syncopal episode and found to have non-STEMI as well as severe cardiomyopathy with ejection fraction of 20-25% on cardiac echo patient was taken to the cardiac catheterization today patient does not have any coronary artery disease most likely patient has Takotsubo cardiomyopathy as has been under severe stress due passing of her recently, today patient states she feels anxious and worried, construction assistant prescribed Lipitor 40 mg q.day patient refused the dose and will take only 20 mg q.day, will continue to monitor the patient patient will be seen by construction assistant and further recommendation to follow (2) Syncope: Qualifiers: Syncope type: unspecified Qualified Code(s): R55 - Syncope and collapse Code(s): R55 - Syncope and collapse Status: Acute Assessment and Plan: Patient was sitting and then stood up and felt dizzy prior to passing out. Check orthostatics Q shift (3) Anxiety: Code(s): F41.9 - Anxiety disorder, unspecified Status: Acute Assessment and Plan: Continue with home medications. (4) Glaucoma: Code(s): H40.9 - Unspecified glaucoma Status: Acute Assessment and Plan: Continue with home eye drops. (5) Osteoporosis: Code(s): M81.0 - Age-related osteoporosis without current pathological fracture Status: Acute Assessment and Plan: Continue with home medications. (6) Dyslipidemia: Code(s): E78.5 - Hyperlipidemia, unspecified Status: Chronic Assessment and Plan: Continue with [place] 3 (7) Essential (primary) hypertension: Code(s): I10 - Essential (primary) hypertension Status: Acute Assessment and Plan: Continue with losartan. (8) UTI (urinary tract infection): Code(s): N39.0 - Urinary tract infection, site not specified Status: Acute Assessment and Plan: The patient was started on Rocephin. Urine and blood cultures are pending Tailor antibiotics according to cultures and sensitivities. Subjective Date/time seen: 06/04/22 17:05 Syncopal episode HPI-Narrative: This is a 76-year-old female patient who has no prior history of any coronary artery disease.? She has a history of hypertension, dyslipidemia and CVA with no residual.? The patient was at the auto repair shop when she had the syncopal episode.? She was told that her auto repairs had been completed and she was free to take her car.? The patient then stood up and took a couple steps and felt lightheaded.? She started to fall to the ground.? The auto machine shop apprentice caught her and lowered her to the ground.? The patient stated that she did not hit her head.? She has no injury.? However the patient stated that she is having some pain to her right chest as she was choking yesterday and she was given the Heimlich maneuver.? The patient stated she has been coughing since she had COVID approximately 2 months ago.? The patient was at [employer] yesterday when she felt that she had a mucus plug and her manager highway performed the Heimlich maneuver on her 3 times.? Patient currently has no chest pain or dizziness.? She has no fever chills.? No palpitations.? She has [facility] her CVA in 2019. Her white count is 14.0.? Her sodium is 136.? Total bilirubin 1.5 and AST 43.? Troponin 1.820 and 1.600.? Her BNP is 7710.
[2022-06-05] VITALS (13 sets, daily range): BP systolic 92–119; BP diastolic 50–56; PULSE 87–110; RESP 14–18; TEMP 36.6; O2SAT 94–99
[2022-06-05] MEDS: ACETAMINOPHEN 500 MG TABLET 1000 MG PO (08:19)
[2022-06-05] MEDS: ATORVASTATIN 20 MG TABLET PO (08:20)
[2022-06-05] MEDS: ASPIRIN 81 MG ENTERIC TABLET PO (08:21)
[2022-06-05] MEDS: OMEGA 3 POLYUNSAT FATTY ACIDS 1 GM CAP PO (08:21)
[2022-06-05] MEDS: METOPROLOL SUCCINATE EXT REL 25 MG TABCR PO (08:22)
[2022-06-05] MEDS: FLUTICASONE PROPIONATE 0.05% NA SPR 16 GM BTL (*BKC) 1 SPRAY NASAL (08:22)
[2022-06-05] MEDS: SACUBITRIL/VALSARTAN 24-26 MG TABLET 1 TAB PO (08:23)
[2022-06-05] MEDS: THERAPEUTIC MULTIVITAMINS/MINERALS TAB (*BKC) 1 TABLET PO (08:23)
[2022-06-05] MEDS: PYRIDOXINE HCL 50 MG TABLET 100 MG PO (08:24)
[2022-06-05] MEDS: SPIRONOLACTONE 12.5 MG TABLET PO (08:24)
[2022-06-05] MEDS: EMPAGLIFLOZIN 10 MG TABLET PO (08:24)
[2022-06-05] MEDS: CALCIUM CARBONATE (OSCAL) 500 MG TABLET PO (08:24)
[2022-06-05] MEDS: CHOLECALCIFEROL 1,000 UNITS TABLET 2000 UNITS PO (08:24)
--- NOTE | 2022-06-05 09:10 | PM.PNCARD ---
Progress Note: A&P Assessment and Plan (1) Takotsubo cardiomyopathy: Code(s): I51.81 - Takotsubo syndrome Status: Acute Assessment and Plan: Cardiac cath 06/04 showed: 1. Non-obstructive coronary arteries 2. Elevated left ventricular end-diastolic pressure of 29mmHg 3. Takotsubo cardiomyopathy with moderately-severely reduced left ventricular ejection fraction TTE 06/04 showed LVEF 20-25%, regional wall motion abnormality consistent with Takotsubo. Will initiate GDMT: Metoprolol succinate 25mg QD Stop home Losartan. Started Entresto. Started Spironolactone. Started Jardiance. Referral to cardiac rehab placed. Okay for patient to be discharged home from a cardiac standpoint. Will arrange for outpatient follow up in our clinic. (2) Non-ST elevation [place] (NSTEMI): Code(s): I21.4 - Non-ST elevation (NSTEMI) myocardial infarction Status: Acute Assessment and Plan: Cardiac cath 06/04 showed: 1. Non-obstructive coronary arteries 2. Elevated left ventricular end-diastolic pressure of 29mmHg 3. Takotsubo cardiomyopathy with moderately-severely reduced left ventricular ejection fraction Management of Takotsubo as noted above. Continue ASA and statin. Atorvastatin increased to higher dose of 40mg. (3) Essential (primary) hypertension: Code(s): I10 - Essential (primary) hypertension Status: Acute Assessment and Plan: Stable, initiating GDMT for cardiomyopathy as noted above. (4) Dyslipidemia: Code(s): E78.5 - Hyperlipidemia, unspecified Status: Chronic Assessment and Plan: Continue Atorvastatin 40mg. Subjective Date/time seen: 06/05/22 09:10 Interval history: Reason for visit: NSTEMI HPI: This is a 76-year-old woman I am seeing in the emergency room because of ECG abnormalities and elevation of her troponin level.? She reports no prior history of cardiac problems and came to the emergency room today because there was a syncopal episode in a local car dealership where she was picking up her car from a service appointment.? The patient states that she began to feel unwell actually yesterday when she was attending samaritan.? In her samaritan service she became short of breath.? She was not eating anything but she felt very short of breath and like she might be choking.? The coal inspector perform the hilum like maneuver on her and she says she thinks maybe some mucus came up and after a while of resting she felt better.? She still felt very weak the rest of the day and went home to rest.? She felt a little bit better this morning and took a card for a service appointment.? She says when she stood up from the desk to walk to a door to leaving get her car she walked about 8-10 feet and then became very lightheaded and appears to have lost consciousness transiently.? A family member was with her and lowered her to the grounds that she did not fall and sustaining sort of injury.? She was brought here to the hospital for further evaluation.? Her electrocardiogram shows sinus tachycardia with inferior lateral T-wave inversions which were not seen on previous ECG.? Her baseline electrocardiogram does show some inferior Q-waves.? She while being evaluated in the emergency room had troponin level sampled which was elevated at 1.8.? Once again she is not having any sort of chest pain pressure or heaviness.? Transiently in the emergency room she was much more tachycardic with a heart rate about 180.? A repeat 12 lead EKG at that time showed possible atypical atrial flutter with 2-1 conduction.? In this setting I am seeing her in consultation.? She does not report any recent illness bed rest long travel or immobility.? She is an active woman who does not notice any sort of chest discomfort with physical exertion.? She has lost about 15-20 lb in the last 6 months.? In the fall she lost her and is now .? She has had a poor appetite since then. Date of service 06/04/2022: No acute events
--- NOTE | 2022-06-05 15:28 | PM.DS ---
DS: Admitting Diagnosis Discharge Date 06/05/2022 Admitting Diagnosis Syncopal episode DS: Discharge Diagnosis Discharge Diagnosis (1) Non-ST elevation [place] (NSTEMI): Code(s): I21.4 - Non-ST elevation (NSTEMI) myocardial infarction Status: Acute Assessment and Plan: Patient is pain-free at this time. She is on heparin drip. Cardiology has been consulted. Echo has been ordered. Troponin was 1.820 and then 1.600. Continue to trend troponins. They appear to be coming down. The patient is now on Lipitor and aspirin. She was given a 1 time dose of metoprolol in the emergency room and then started on a daily dose. 06/04/2022 interval history: 76-year-old female presented with syncopal episode and found to have non-STEMI as well as severe cardiomyopathy with ejection fraction of 20-25% on cardiac echo patient was taken to the cardiac catheterization today patient does not have any coronary artery disease most likely patient has Takotsubo cardiomyopathy as has been under severe stress due passing of her recently, today patient states she feels anxious and worried, centrifugal station operator prescribed Lipitor 40 mg q.day patient refused the dose and will take only 20 mg q.day, will continue to monitor the patient patient will be seen by centrifugal station operator and further recommendation to follow (2) Syncope: Qualifiers: Syncope type: unspecified Qualified Code(s): R55 - Syncope and collapse Code(s): R55 - Syncope and collapse Status: Acute Assessment and Plan: Patient was sitting and then stood up and felt dizzy prior to passing out. Check orthostatics Q shift (3) Anxiety: Code(s): F41.9 - Anxiety disorder, unspecified Status: Acute Assessment and Plan: Continue with home medications. (4) Glaucoma: Code(s): H40.9 - Unspecified glaucoma Status: Acute Assessment and Plan: Continue with home eye drops. (5) Osteoporosis: Code(s): M81.0 - Age-related osteoporosis without current pathological fracture Status: Acute Assessment and Plan: Continue with home medications. (6) Dyslipidemia: Code(s): E78.5 - Hyperlipidemia, unspecified Status: Chronic Assessment and Plan: Continue with Chestnut 3 (7) Essential (primary) hypertension: Code(s): I10 - Essential (primary) hypertension Status: Acute Assessment and Plan: Continue with losartan. (8) UTI (urinary tract infection): Code(s): N39.0 - Urinary tract infection, site not specified Status: Acute Assessment and Plan: The patient was started on Rocephin. Urine and blood cultures are pending Tailor antibiotics according to cultures and sensitivities. DS: Summary Hospital Course Reason for hospitalization: Syncopal episode Narrative: This is a 76-year-old female patient who has no prior history of any coronary artery disease.? She has a history of hypertension, dyslipidemia and CVA with no residual.? The patient was at the auto repair shop when she had the syncopal episode.? She was told that her auto repairs had been completed and she was free to take her car.? The patient then stood up and took a couple steps and felt lightheaded.? She started to fall to the ground.? The auto supervisor boilermaking shop caught her and lowered her to the ground.? The patient stated that she did not hit her head.? She has no injury.? However the patient stated that she is having some pain to her right chest as she was choking yesterday and she was given the Heimlich maneuver.? The patient stated she has been coughing since she had COVID approximately 2 months ago.? The patient was at [employer] yesterday when she felt that she had a mucus plug and her sterilization tech performed the Heimlich maneuver on her 3 times.? Patient currently has no chest pain or dizziness.? She has no fever chills.? No palpitations.? She has been seeing Dr. Prescott [facility] since her CVA in 2019. Her white cou
== END 2022-06-05 16:19 | disposition home or self-care (01) | DRG 281 ==
LOC: ANHED 14:09 → ANHIMU 16:02
PROVIDERS: Internal Medicine; Nurse Practitioner; Admitting Provider Internal Medicine; Emergency Provider Physician Assistant; PCP Internal Medicine; Visit Provider Family Medicine
PROC: 4A023N7 Measurement of Cardiac Sampling and Pressure, Left Heart, Percutaneous Approach (ICD-10-PCS; CPT 93452; principal; 2022-06-04 08:30)
DX: I21.4 Non-ST elevation (NSTEMI) myocardial infarction (principal); I51.81 Takotsubo syndrome; R55 Syncope and collapse; F41.9 Anxiety disorder, unspecified; H40.9 Unspecified glaucoma; M81.0 Age-related osteoporosis without current pathological fracture; E78.5 Hyperlipidemia, unspecified; I10 Essential (primary) hypertension; M17.0 Bilateral primary osteoarthritis of knee; N32.81 Overactive bladder; R29.700 NIHSS score 0; Z86.73 Personal history of transient ischemic attack (TIA), and cerebral infarction without residual deficits; Z86.16 Personal history of COVID-19; Z79.82 Long term (current) use of aspirin
CPT/HCPCS: 36415; 71045; 71275; 80053; 81001; 83605; 83735; 83880; 84443; 84484; 85025; 85380; 85610; 85730; 87040; 87086; 87088; 93005; 93306; 93458; 93923; 96361; 96365; 96366; 96368; 96375; 96376; 99285; A9270; C1769; C1887; C1894; J0131; J0696; J1644; J1940; J2250; J3010; J7030; J7040; Q9967

== ENCOUNTER 2022-06-28 12:14 | Outpatient (CLI) | payer MEDICARE, SELFPAY ==
--- NOTE | ~2022-06-28 | XR_ITS ---
EXAMINATION: XR chest 2V 06/28/2022 12:42 INDICATION: Cough. Covid. PROCEDURE: 2 view chest COMPARISON: Comparison to multiple prior studies sequentially, with oldest reviewed study dated 10/2019. FINDINGS: The lungs are clear. The cardiomediastinal silhouette is within normal limits. There are no pleural effusions. There is no pneumothorax suspected. There is scoliosis. The lungs are hyperin flated which is consistent with, but not diagnostic of chronic obstructive pulmonary disease. IMPRESSION: 1: NO ACUTE CARDIOPULMONARY DISEASE. Reviewed, dictated and finalized at location B.
== END 2022-06-28 12:15 | disposition home or self-care (01) ==
PROVIDERS: PCP Internal Medicine; Visit Provider Internal Medicine
DX: R05.9 Cough, unspecified (principal)
CPT/HCPCS: 71046

== ENCOUNTER 2022-08-02 14:35 | Outpatient (CLI) | payer MEDICARE, SELFPAY ==
--- NOTE | ~2022-08-02 | CT_ITS ---
CT Scan of the Chest without Contrast: Clinical Indication: Pneumonia Technique: Contiguous sections were acquired throughout the chest without intravenous contrast. Dose reduction technique was used on this scan by utilizing automated exposure control and iterative recon struction technique. The dose-length product (DLP) was 139.50 mGy-cm. COMPARISON: 06/03/2022 Findings: There is no evidence of any significant mediastinal, hilar or axillary lymphadenopathy. The mediastin al soft tissues appear normal. There is no evidence of pleural or pericardial effusion. Stable 4 mm groundglass right lower lobe pulmonary nodule (axial image 59). Lungs are otherwise clear . Images through the upper abdomen reveal no abnormalities. Impression: Stable 4 mm groundglass right lower lobe pulmonary nodule. Reviewed, dictated and finalized at location . Impression: Stable 4 mm groundglass right lower lobe pulmonary nodule.
== END 2022-08-02 14:36 | disposition home or self-care (01) ==
PROVIDERS: PCP Internal Medicine; Visit Provider Internal Medicine
DX: J18.9 Pneumonia, unspecified organism (principal); R91.1 Solitary pulmonary nodule
CPT/HCPCS: 71250